=== PATIENT | male | born 1965 ===

== ENCOUNTER 2018-01-12 08:39 | Emergency (ER) | payer BC ==
[2018-01-12 08:49] VITALS: RESP 20
[2018-01-12] MEDS ORDERED: Sodium Chloride 0.9% 1,000 ML IV ONE (09:06)
--- NOTE | 2018-01-12 09:23 | C.PDOC ---
History Of Present Illness 52yo male, comes to ER for evaluation of diarrhea, abdominal pain and nausea x 4 days. He reports a temperature at home as well as chills and a decreased appetite. Patient denies any vomiting, chest pain, back pain, urinary symptoms and offers no additional complaints. Time Seen by Provider: 01/12/18 08:51 Chief Complaint (Nursing): GI Problem History Per: Patient History/Exam Limitations: no limitations Onset/Duration Of Symptoms: Days Current Symptoms Are (Timing): Still Present Location Of Pain/Discomfort: Diffuse Associated Symptoms: Fever, Chills, Nausea, Diarrhea. denies: Vomiting, Back Pain, Chest Pain, Urinary Symptoms Past Medical History Reviewed: Historical Data, Nursing Documentation, Vital Signs Vital Signs: Last Vital Signs Temp 98.3 F 01/12/18 10:26 Pulse 101 H 01/12/18 10:26 Resp 20 01/12/18 10:26 BP 136/92 H 01/12/18 10:26 Pulse Ox 100 01/12/18 10:26 - Medical History PMH: No Chronic Diseases Surgical History: No Surg Hx Family History: States: No Known Family Hx - Social History Hx Alcohol Use: No Hx Substance Use: No Review Of Systems Except As Marked, All Systems Reviewed And Found Negative. Constitutional: Positive for: Fever, Chills Cardiovascular: Negative for: Chest Pain Gastrointestinal: Positive for: Nausea, Abdominal Pain, Diarrhea. Negative for : Vomiting Genitourinary: Negative for: Dysuria, Frequency, Hematuria Musculoskeletal: Negative for: Back Pain Physical Exam - Physical Exam Appears: Non-toxic, No Acute Distress Skin: Normal Color, Warm, Dry Head: Atraumatic, Normacephalic Eye(s): bilateral: Normal Inspection Neck: Normal ROM, Supple Chest: Symmetrical Cardiovascular: Rhythm Regular Respiratory: Normal Breath Sounds Gastrointestinal/Abdominal: Soft, Tenderness (diffuse), No Guarding, No Rebound Back: Normal Inspection Extremity: Normal ROM Neurological/Psych: Oriented x3 ED Course And Treatment - Laboratory Results Result Diagrams: 01/12/18 09:27 01/12/18 09:27 Lab Interpretation: Normal O2 Sat by Pulse Oximetry: 99 (RA) Pulse Ox Interpretation: Normal Progress Note: Labs and UA ordered. Patient given IV fluids and bentyl. On re- evaluation abdomen soft, in no distress Reassessment Condition: Improved Disposition Counseled Patient/Family Regarding: Studies Performed, Diagnosis, Need For Followup, Rx Given - Disposition Referrals: [facility] [Outside] [facility] [Outside] Disposition: HOME/ ROUTINE Disposition Time: 10:20 Condition: STABLE Additional Instructions: Follow up at clinic Return to ED if any increase symptoms Prescriptions: Dicyclomine [Bentyl] 20 mg PO TID #12 tab Instructions: Diarrhea in Adolescents and Adults, Viral Gastroenteritis, Adult (DC) Forms: [employer] (Fijian) - POA Present On Arrival: None - Clinical Impression Clinical Impression: Diarrhea, Gastroenteritis - PA / FEED HANDLER / Resident Statement MD/DO has reviewed & agrees with the documentation as recorded. - Scribe Statement The provider has reviewed the documentation as recorded by the Placido Meneses Provider Attestation: All medical record entries made by the Placido were at my direction and personally dictated by me. I have reviewed the chart and agree that the record accurately reflects my personal performance of the history, physical exam, medical decision making, and the department course for this patient. I have also personally directed, reviewed, and agree with the discharge instructions and disposition.
[2018-01-12 09:33] LABS: BASO % 0.7 % (0.0-2.0); EOS % 0.6 % (0.0-4.0); LYMPH # 1.2 K/uL (1.0-4.3); LYMPH % 23.6 % (20.0-40.0); MEAN CELL VOLUME 83.5 fL (80.0-94.0); MEAN CORPUSCULAR HEMOGLOBIN 29.3 pg (27.0-31.0); MEAN CORPUSCULAR HGB CONC 35.1 g/dL (33.0-37.0); MEAN PLATELET VOLUME 8.8 fL (7.2-11.7); MONO % 20.7 % (0.0-10.0); NEUT # 2.7 K/uL (1.8-7.0); NEUT % 54.4 % (50.0-75.0); NRBC % 0.2 % (0.0-2.0); PLATELET COUNT 180 K/uL (130-400); RBC 5.46 Mil/uL (4.40-5.90); RED CELL DISTRIBUTION WIDTH 13.1 % (11.5-14.5)
[2018-01-12 09:41] LABS: ALB/GLOB RATIO 1.4 (1.0-2.1); ALBUMIN 4.5 g/dL (3.5-5.0); CALCIUM 9.4 mg/dl (8.6-10.4); GFR AFRICAN-AMERICAN > 60; GFR NON-AFRICAN AMERICAN > 60; LIPASE 34 U/L (23-300)
[2018-01-12 09:42] LABS: ALT/SGPT 16 U/L (21-72); AST/SGOT 20 U/L (17-59); BLOOD UREA NITROGEN 16 mg/dL (9-20)
[2018-01-12 09:58] LABS: BANDS 2 % (0-2); LYMPHOCYTE 30 % (20-40); MONOCYTE 23 % (0-10); NEUTROPHIL 45 % (50-75); PLATELET ESTIMATE NORMAL (NORMAL); TOTAL CELLS COUNTED 100
[2018-01-12 10:26] VITALS: BP 136/92; PULSE 101; TEMP 98.3
[2018-01-12 16:51] VITALS: O2SAT 99
== END 2018-01-12 10:44 | disposition home or self-care (01) ==
LOC: C.ER 08:39
DX: K52.9 Noninfective gastroenteritis and colitis, unspecified (principal)
CPT/HCPCS: 80053; 83690; 85025; 96360; 96372; 99284; J0500; J7030